=== PATIENT | female | born 1945 | race Hispanic/Latino ===

== ENCOUNTER → 2017-09-10 | Outpatient (CLI) | payer MEDICARE ==
[~2017-09-10] MED LIST: ASPI-555 PO; BENZ-51 PO; BUDE0.5A3 IH; DILT240C50 PO; DOXY100C40 PO; DULO30CA51 PO; FERR325T29 PO; FISH1CAP63 PO; FOLI1TAB15 PO; FURO40TA5 PO; INSLAN SQ; INSU100V SQ; LEVO75TA10 PO; LINA5TAB PO; LORA0.5T2 PO; MECL12.585 PO; METO-408 PO; PRAV40TA3 PO; PRED20TA3 PO; VALS80TA2 PO; ZOLP5TAB8 PO; [UNRECOGNIZED DRUG - CODE] PO
== END | disposition home or self-care (01) ==
LOC: RAH 10:00
PROVIDERS: ATTEND Internal Medicine Nephrology
DX: Z12.31 Encounter for screening mammogram for malignant neoplasm of breast (principal)
CPT/HCPCS: 77067

== ENCOUNTER 2018-09-07 11:14 | Emergency (ER) | payer MEDICARE ==
[~2018-09-07 11:14] MED LIST changes: -DOXY100C40 PO; -PRED20TA3 PO; -[UNRECOGNIZED DRUG - CODE] PO
[2018-09-07 11:50] LABS: BASOPHILS % (AUTO) 0.3 % (0.0-5.0); MEAN CORPUSCULAR HEMOGLOBIN 30.7 pg (27.0-33.0); MEAN CORPUSCULAR HGB CONC 31.7 g/dL (32.0-36.0); MEAN CORPUSCULAR VOLUME 97.1 fL (79-99); MONOCYTES % (AUTO) 6.3 % (3.0-13.0); NEUTROPHILS % (AUTO) 79.4 % (40.0-77.0); NUCLEATED RED BLOOD CELLS 0.3 % (0.0-0.19); PLATELET COUNT (AUTO) 163 K/uL (130-400); RED CELL DISTRIBUTION WIDTH 15.8 % (11.0-15.5); WHITE BLOOD COUNT (AUTO) 9.1 K/uL (4.8-10.8)
[2018-09-07 11:56] LABS: HEMATOCRIT 19.4 % (36-48)
[2018-09-07 12:01] LABS: CREATININE 1.6 mg/dL (0.5-1.5)
[2018-09-07 12:05] LABS: POTASSIUM 6.3 mmol/L (3.5-5.1)
[2018-09-07 12:16] LABS: INR 1.02 (0.85-1.15); PARTIAL THROMBOPLASTIN TIME 22.9 SEC (26.3-35.5); PROTHROMBIN TIME 10.7 SEC (9.6-11.6)
== END 2018-09-07 15:19 ==
LOC: EDH 11:14
DX: R04.0 Epistaxis (principal); E11.9 Type 2 diabetes mellitus without complications; N18.9 Chronic kidney disease, unspecified; I48.91 Unspecified atrial fibrillation; E78.5 Hyperlipidemia, unspecified; I25.10 Atherosclerotic heart disease of native coronary artery without angina pectoris; E07.9 Disorder of thyroid, unspecified; Z88.0 Allergy status to penicillin
CPT/HCPCS: 36415; 80048; 84484; 85025; 85610; 85730; 86850; 86900; 86901; 86922; 93005

== ENCOUNTER 2018-09-23 08:50 | Inpatient (IN) | payer MEDICARE ==
[2018-09-23 10:09] LABS: ABG BASE EXCESS 13.7 mmol/L (-2.0-3.0); ABG HCO3 42.1 mmol/L (21.0-28.0); ABG OXYGEN SATURATION 96.9 % (95.0-99.0); ABG PCO2 69 mmHg (32-45)
[2018-09-23 10:18] LABS: CREATININE 1.2 mg/dL (0.5-1.5); POTASSIUM 4.1 mmol/L (3.5-5.1)
[2018-09-23 10:21] LABS: BASOPHILS % (AUTO) 0.1 % (0.0-5.0); EOSINOPHILS % (AUTO) 0.2 % (0.0-8.0); HEMATOCRIT 31.8 % (36-48); MEAN CORPUSCULAR HEMOGLOBIN 29.3 pg (27.0-33.0); MEAN CORPUSCULAR VOLUME 91.3 fL (79-99); MONOCYTES % (AUTO) 7.8 % (3.0-13.0); NEUTROPHILS % (AUTO) 78.9 % (40.0-77.0); NUCLEATED RED BLOOD CELLS 0.1 % (0.0-0.19); PLATELET COUNT (AUTO) 175 K/uL (130-400); RED BLOOD CELL COUNT(AUTO) 3.48 MIL/uL (4.00-5.50); RED CELL DISTRIBUTION WIDTH 16.8 % (11.0-15.5); WHITE BLOOD COUNT (AUTO) 7.8 K/uL (4.8-10.8)
[2018-09-23 10:28] LABS: ALBUMIN 2.6 g/dL (3.5-5.0); BILIRUBIN,TOTAL 0.3 mg/dL (0.2-1.0); TOTAL PROTEIN, SERUM 6.5 g/dL (6.0-8.3)
[2018-09-23 10:40] LABS: B-TYPE NATRIURETIC PEPTIDE 1900 pg/mL (0-100)
[2018-09-23] MEDS ORDERED: IPRATROPIUM/ALBUTEROL SULFATE 3 ML SOLUTION IH ONE (10:55)
[2018-09-23] MEDS ORDERED: FUROSEMIDE 10 MG/ML 4ML VIAL ONE (10:56)
[2018-09-23] MEDS ORDERED: METHYLPREDNISOLONE SOD SUCC 125MG/2ML VIAL ONE (10:57)
[2018-09-23] MEDS ORDERED: ZOLPIDEM TARTRATE 5 MG TAB PO PRN (15:00)
[2018-09-23] MEDS ORDERED: MECLIZINE HCL 12.5 MG TABLET PO PRN (17:15)
[2018-09-23] MEDS ORDERED: HEPARIN SODIUM 5000UNIT/ML 1ML VIAL SQ SCH (17:15)
[2018-09-23] MEDS: FERROUS SULFATE 325 MG TABLET.DR PO SCH (17:59)
[2018-09-23] MEDS: FUROSEMIDE 10 MG/ML 4ML VIAL IVP SCH (18:00)
[2018-09-23 19:18] VITALS: BP 143/71
[2018-09-23] MEDS: BUDESONIDE 0.5 MG/2 ML INH IH SCH (19:40)
[2018-09-23] MEDS: IPRATROPIUM 0.5 MG/2.5 ML INH IH SCH ×2 (19:40→23:30)
[2018-09-23] MEDS: HEPARIN SODIUM 5000UNIT/ML 1ML VIAL SQ SCH (22:00)
[2018-09-23] MEDS: INSULIN HUMULIN R 100 UNIT/ML 3ML SQ SCH (22:02)
[2018-09-23] MEDS: INSULIN GLARGINE 100 UNITS/ML 10 ML VIAL SQ SCH (22:02)
[2018-09-23] MEDS: METOPROLOL TARTRATE 25 MG TAB PO SCH (22:03)
[2018-09-23] MEDS: BENZONATATE 100 MG CAPSULE PO SCH (22:03)
[2018-09-23] MEDS: SIMVASTATIN 20 MG TABLET PO SCH (22:03)
[2018-09-23 23:42] VITALS: BP 146/61
[2018-09-24 04:11] VITALS: BP 122/60
[2018-09-24 04:43] LABS: ABG BASE EXCESS 13.2 mmol/L (-2.0-3.0); ABG HCO3 39.4 mmol/L (21.0-28.0); ABG OXYGEN SATURATION 97.1 % (95.0-99.0); ABG PCO2 55 mmHg (32-45)
[2018-09-24] MEDS: FUROSEMIDE 10 MG/ML 4ML VIAL IVP SCH ×2 (05:43→18:45)
[2018-09-24] MEDS: LEVOTHYROXINE 75 MCG TABLET PO SCH (05:44)
[2018-09-24] MEDS: INSULIN HUMULIN R 100 UNIT/ML 3ML SQ SCH ×4 (05:45→22:21)
[2018-09-24] MEDS: BUDESONIDE 0.5 MG/2 ML INH IH SCH ×2 (06:18→19:08)
[2018-09-24] MEDS: IPRATROPIUM 0.5 MG/2.5 ML INH IH SCH ×4 (06:18→23:21)
[2018-09-24 07:38] VITALS: BP 157/72
[2018-09-24] MEDS: LINAGLIPTIN 5 MG TABLET PO SCH (08:40)
[2018-09-24] MEDS: FISH OIL 1000 MG/CAP PO SCH (08:40)
[2018-09-24] MEDS: FERROUS SULFATE 325 MG TABLET.DR PO SCH ×2 (08:41→16:56)
[2018-09-24] MEDS: ASPIRIN 81 MG EC TAB PO SCH (08:41)
[2018-09-24] MEDS: DILTIAZEM HCL 120 MG CAP.SR.24H PO SCH (08:41)
[2018-09-24] MEDS: LORAZEPAM 0.5 MG TABLET PO SCH (08:41)
[2018-09-24] MEDS: DULOXETINE HCL 30 MG CAP PO SCH (08:41)
[2018-09-24] MEDS: FOLIC ACID 1 MG TABLET PO SCH (08:42)
[2018-09-24] MEDS: DOXYCYCLINE HYCLATE 100 MG TABLET PO SCH ×2 (08:42→21:03)
[2018-09-24] MEDS: LOSARTAN 100 MG TABLET PO SCH (08:42)
[2018-09-24] MEDS: BENZONATATE 100 MG CAPSULE PO SCH ×3 (08:42→21:03)
[2018-09-24] MEDS: METOPROLOL TARTRATE 25 MG TAB PO SCH ×2 (08:42→21:04)
[2018-09-24] MEDS ORDERED: FUROSEMIDE 40 MG TABLET PO SCH (09:00)
[2018-09-24] MEDS: HEPARIN SODIUM 5000UNIT/ML 1ML VIAL SQ SCH ×2 (10:09→20:57)
[2018-09-24 11:11] VITALS: BP 146/61
[2018-09-24 13:31] LABS: HEMATOCRIT 27.8 % (36-48); MEAN CORPUSCULAR HEMOGLOBIN 29.3 pg (27.0-33.0); MEAN CORPUSCULAR HGB CONC 31.7 g/dL (32.0-36.0); MEAN CORPUSCULAR VOLUME 92.4 fL (79-99); NUCLEATED RED BLOOD CELLS 0.1 % (0.0-0.19); PLATELET COUNT (AUTO) 206 K/uL (130-400); RED BLOOD CELL COUNT(AUTO) 3.01 MIL/uL (4.00-5.50); RED CELL DISTRIBUTION WIDTH 16.9 % (11.0-15.5); WHITE BLOOD COUNT (AUTO) 12.6 K/uL (4.8-10.8)
--- NOTE | 2018-09-24 13:37 | NUR ---
INITIAL: Met with pt this afternoon to discuss dcp. Pt mentions that she lives alone. Prior to admission was using a walker for ambulation and requires assistance w ADLs. Pt has provider services 39 1/2hr per week. Pt also has at home a nebulizer, cpap-, home O2 and a sh chair. Per pt she feels safe and comfortable to return home at ut. Will continue to follow and wait for MD recommendations. Addendum: 09/24/18 at 1343 by NOELLE HENDRICKS CM Amended: Links added.
[2018-09-24 14:03] LABS: CREATININE 1.6 mg/dL (0.5-1.5); MAGNESIUM 1.7 mg/dL (1.80-2.40); PHOSPHORUS 4.1 mg/dL (2.5-4.9); POTASSIUM 3.9 mmol/L (3.5-5.1); THYROID STIMULATING HORMONE 3.35 uIU/mL (0.36-3.74)
[2018-09-24] MEDS ORDERED: ACETAMINOPHEN 325 MG TAB PO PRN (15:00)
[2018-09-24 15:25] LABS: INR 0.92 (0.85-1.15); PROTHROMBIN TIME 9.7 SEC (9.6-11.6)
[2018-09-24 15:38] LABS: PARTIAL THROMBOPLASTIN TIME > 120.0 SEC (26.3-35.5)
[2018-09-24 15:46] VITALS: BP 118/50
[2018-09-24 19:00] VITALS: BP 124/70
[2018-09-24] MEDS: SIMVASTATIN 20 MG TABLET PO SCH (21:04)
[2018-09-24] MEDS: INSULIN GLARGINE 100 UNITS/ML 10 ML VIAL SQ SCH (22:21)
[2018-09-24 23:16] VITALS: BP 125/63
[2018-09-25 04:11] VITALS: BP 142/65
[2018-09-25 04:27] LABS: BASOPHILS % (AUTO) 0.5 % (0.0-5.0); EOSINOPHILS % (AUTO) 0.5 % (0.0-8.0); HEMATOCRIT 25.7 % (36-48); LYMPHOCYTES % (AUTO) 18.9 % (21.0-51.0); MEAN CORPUSCULAR HEMOGLOBIN 29.4 pg (27.0-33.0); MEAN CORPUSCULAR HGB CONC 31.8 g/dL (32.0-36.0); MEAN CORPUSCULAR VOLUME 92.4 fL (79-99); MONOCYTES % (AUTO) 5.9 % (3.0-13.0); NEUTROPHILS % (AUTO) 74.2 % (40.0-77.0); NUCLEATED RED BLOOD CELLS 0.1 % (0.0-0.19); PLATELET COUNT (AUTO) 158 K/uL (130-400); RED BLOOD CELL COUNT(AUTO) 2.78 MIL/uL (4.00-5.50); RED CELL DISTRIBUTION WIDTH 17.1 % (11.0-15.5); WHITE BLOOD COUNT (AUTO) 15.6 K/uL (4.8-10.8)
[2018-09-25 04:28] LABS: HEMOGLOBIN A1C 6.4 % (4.0-6.0)
[2018-09-25 04:30] LABS: INR 0.88 (0.85-1.15); PROTHROMBIN TIME 9.3 SEC (9.6-11.6)
[2018-09-25 04:37] LABS: PARTIAL THROMBOPLASTIN TIME > 120.0 SEC (26.3-35.5)
[2018-09-25 04:40] LABS: ALBUMIN 2.4 g/dL (3.5-5.0); BILIRUBIN,TOTAL 0.2 mg/dL (0.2-1.0); CREATININE 1.4 mg/dL (0.5-1.5); MAGNESIUM 1.9 mg/dL (1.80-2.40); PHOSPHORUS 4.7 mg/dL (2.5-4.9); POTASSIUM 4.2 mmol/L (3.5-5.1); THYROID STIMULATING HORMONE 6.68 uIU/mL (0.36-3.74); TOTAL PROTEIN, SERUM 5.8 g/dL (6.0-8.3)
[2018-09-25 04:55] LABS: B-TYPE NATRIURETIC PEPTIDE 544 pg/mL (0-100)
[2018-09-25] MEDS: FUROSEMIDE 10 MG/ML 4ML VIAL IVP SCH (06:10)
[2018-09-25] MEDS: LEVOTHYROXINE 75 MCG TABLET PO SCH (06:10)
[2018-09-25] MEDS: INSULIN HUMULIN R 100 UNIT/ML 3ML SQ SCH ×4 (06:11→21:00)
[2018-09-25] MEDS: IPRATROPIUM 0.5 MG/2.5 ML INH IH SCH ×4 (06:21→23:36)
[2018-09-25] MEDS: BUDESONIDE 0.5 MG/2 ML INH IH SCH ×2 (06:38→19:20)
[2018-09-25 07:21] VITALS: BP 145/70
[2018-09-25] MEDS: LINAGLIPTIN 5 MG TABLET PO SCH (08:57)
[2018-09-25] MEDS: LORAZEPAM 0.5 MG TABLET PO SCH (08:57)
[2018-09-25] MEDS: BENZONATATE 100 MG CAPSULE PO SCH ×3 (08:58→21:22)
[2018-09-25] MEDS: FERROUS SULFATE 325 MG TABLET.DR PO SCH ×2 (08:58→16:23)
[2018-09-25] MEDS: LOSARTAN 100 MG TABLET PO SCH (08:58)
[2018-09-25] MEDS: DILTIAZEM HCL 120 MG CAP.SR.24H PO SCH (08:58)
[2018-09-25] MEDS: DULOXETINE HCL 30 MG CAP PO SCH (08:58)
[2018-09-25] MEDS: FISH OIL 1000 MG/CAP PO SCH (08:59)
[2018-09-25] MEDS: DOXYCYCLINE HYCLATE 100 MG TABLET PO SCH ×2 (08:59→21:22)
[2018-09-25] MEDS: ASPIRIN 81 MG EC TAB PO SCH (08:59)
[2018-09-25] MEDS: FOLIC ACID 1 MG TABLET PO SCH (08:59)
[2018-09-25] MEDS: HEPARIN SODIUM 5000UNIT/ML 1ML VIAL SQ SCH ×2 (09:00→21:00)
[2018-09-25] MEDS: METOPROLOL TARTRATE 25 MG TAB PO SCH ×2 (09:00→21:22)
[2018-09-25] MEDS: FUROSEMIDE 40 MG TABLET PO SCH (09:51)
[2018-09-25 11:13] VITALS: BP 110/50
[2018-09-25 15:50] VITALS: BP 111/55
[2018-09-25 19:24] VITALS: BP 139/70
[2018-09-25] MEDS: SIMVASTATIN 20 MG TABLET PO SCH (21:22)
[2018-09-25] MEDS: INSULIN GLARGINE 100 UNITS/ML 10 ML VIAL SQ SCH (21:27)
[2018-09-26] VITALS (7 sets, daily range): BP systolic 99–158; BP diastolic 36–61
[2018-09-26 03:50] LABS: BASOPHILS % (AUTO) 0.4 % (0.0-5.0); EOSINOPHILS % (AUTO) 0.4 % (0.0-8.0); HEMATOCRIT 25.8 % (36-48); LYMPHOCYTES % (AUTO) 22.9 % (21.0-51.0); MEAN CORPUSCULAR HEMOGLOBIN 29.4 pg (27.0-33.0); MEAN CORPUSCULAR HGB CONC 32.1 g/dL (32.0-36.0); MEAN CORPUSCULAR VOLUME 91.4 fL (79-99); MONOCYTES % (AUTO) 8.3 % (3.0-13.0); NUCLEATED RED BLOOD CELLS 0.1 % (0.0-0.19); PLATELET COUNT (AUTO) 166 K/uL (130-400); RED BLOOD CELL COUNT(AUTO) 2.82 MIL/uL (4.00-5.50); RED CELL DISTRIBUTION WIDTH 17.2 % (11.0-15.5); WHITE BLOOD COUNT (AUTO) 9.3 K/uL (4.8-10.8)
[2018-09-26 04:08] LABS: ALBUMIN 2.3 g/dL (3.5-5.0); BILIRUBIN,TOTAL 0.3 mg/dL (0.2-1.0); CREATININE 1.4 mg/dL (0.5-1.5); MAGNESIUM 1.8 mg/dL (1.80-2.40); PHOSPHORUS 3.9 mg/dL (2.5-4.9); POTASSIUM 4.2 mmol/L (3.5-5.1); TOTAL PROTEIN, SERUM 5.7 g/dL (6.0-8.3)
[2018-09-26 04:18] LABS: B-TYPE NATRIURETIC PEPTIDE 569 pg/mL (0-100)
[2018-09-26] MEDS: LEVOTHYROXINE 75 MCG TABLET PO SCH (06:04)
[2018-09-26] MEDS: INSULIN HUMULIN R 100 UNIT/ML 3ML SQ SCH ×4 (06:06→22:05)
[2018-09-26] MEDS: IPRATROPIUM 0.5 MG/2.5 ML INH IH SCH ×4 (06:27→23:18)
[2018-09-26] MEDS: BUDESONIDE 0.5 MG/2 ML INH IH SCH ×2 (06:38→19:25)
[2018-09-26] MEDS: FERROUS SULFATE 325 MG TABLET.DR PO SCH ×2 (08:00→16:05)
[2018-09-26] MEDS: HEPARIN SODIUM 5000UNIT/ML 1ML VIAL SQ SCH ×2 (09:00→22:03)
[2018-09-26] MEDS: FISH OIL 1000 MG/CAP PO SCH (09:12)
[2018-09-26] MEDS: DULOXETINE HCL 30 MG CAP PO SCH (09:12)
[2018-09-26] MEDS: DOXYCYCLINE HYCLATE 100 MG TABLET PO SCH ×2 (09:12→21:50)
[2018-09-26] MEDS: ASPIRIN 81 MG EC TAB PO SCH (09:12)
[2018-09-26] MEDS: METOPROLOL TARTRATE 25 MG TAB PO SCH ×2 (09:12→21:51)
[2018-09-26] MEDS: LORAZEPAM 0.5 MG TABLET PO SCH (09:12)
[2018-09-26] MEDS: FOLIC ACID 1 MG TABLET PO SCH (09:12)
[2018-09-26] MEDS: LOSARTAN 100 MG TABLET PO SCH (09:12)
[2018-09-26] MEDS: FUROSEMIDE 40 MG TABLET PO SCH (09:12)
[2018-09-26] MEDS: LINAGLIPTIN 5 MG TABLET PO SCH (09:12)
[2018-09-26] MEDS: BENZONATATE 100 MG CAPSULE PO SCH ×3 (09:12→21:50)
[2018-09-26] MEDS: DILTIAZEM HCL 120 MG CAP.SR.24H PO SCH (09:13)
[2018-09-26] MEDS: SIMVASTATIN 20 MG TABLET PO SCH (21:50)
[2018-09-26] MEDS: INSULIN GLARGINE 100 UNITS/ML 10 ML VIAL SQ SCH (22:04)
[2018-09-27 03:40] LABS: BASOPHILS % (AUTO) 0.6 % (0.0-5.0); EOSINOPHILS % (AUTO) 0.7 % (0.0-8.0); HEMATOCRIT 25.4 % (36-48); LYMPHOCYTES % (AUTO) 18.8 % (21.0-51.0); MEAN CORPUSCULAR HEMOGLOBIN 28.6 pg (27.0-33.0); MEAN CORPUSCULAR HGB CONC 31.4 g/dL (32.0-36.0); MONOCYTES % (AUTO) 7.9 % (3.0-13.0); NUCLEATED RED BLOOD CELLS 0.1 % (0.0-0.19); PLATELET COUNT (AUTO) 169 K/uL (130-400); RED BLOOD CELL COUNT(AUTO) 2.79 MIL/uL (4.00-5.50); WHITE BLOOD COUNT (AUTO) 8.2 K/uL (4.8-10.8)
[2018-09-27 03:52] VITALS: BP 122/62
[2018-09-27 04:03] LABS: INR 0.94 (0.85-1.15); PARTIAL THROMBOPLASTIN TIME 23.7 SEC (26.3-35.5); PROTHROMBIN TIME 9.9 SEC (9.6-11.6)
[2018-09-27 04:09] LABS: ALBUMIN 2.3 g/dL (3.5-5.0); BILIRUBIN,TOTAL 0.3 mg/dL (0.2-1.0); CREATININE 1.5 mg/dL (0.5-1.5); POTASSIUM 4.2 mmol/L (3.5-5.1); TOTAL PROTEIN, SERUM 5.7 g/dL (6.0-8.3)
[2018-09-27] MEDS: INSULIN HUMULIN R 100 UNIT/ML 3ML SQ SCH ×4 (06:14→21:35)
[2018-09-27] MEDS: LEVOTHYROXINE 75 MCG TABLET PO SCH (06:16)
[2018-09-27 07:00] VITALS: BP 132/64
[2018-09-27] MEDS: BUDESONIDE 0.5 MG/2 ML INH IH SCH ×2 (07:15→18:48)
[2018-09-27] MEDS: IPRATROPIUM 0.5 MG/2.5 ML INH IH SCH ×4 (07:15→23:37)
--- NOTE | 2018-09-27 08:00 | NUR ---
AM ASSESSMENT PT SITTING IN BED, WATCHING TV. A/O X 3. SOB ON EXERTION. NO DISTRESS NOTED. O2 NC @ 2L. DENIES CHEST PAIN OR DISCOMFORT. DENIES PALPITATIONS. TELE: SR 80s. DENIES N/V AND/OR DIARRHEA. BEDREST. INSTRUCTED TO CALL FOR ASSISTANCE. CALL SOPHIA W/IN REACH.
[2018-09-27] MEDS: HEPARIN SODIUM 5000UNIT/ML 1ML VIAL SQ SCH ×2 (08:09→21:17)
[2018-09-27] MEDS: DOXYCYCLINE HYCLATE 100 MG TABLET PO SCH ×2 (08:14→21:22)
[2018-09-27] MEDS: FERROUS SULFATE 325 MG TABLET.DR PO SCH ×2 (08:14→16:30)
[2018-09-27] MEDS: ASPIRIN 81 MG EC TAB PO SCH (08:14)
[2018-09-27] MEDS: FISH OIL 1000 MG/CAP PO SCH (08:14)
[2018-09-27] MEDS: LOSARTAN 100 MG TABLET PO SCH (08:14)
[2018-09-27] MEDS: LORAZEPAM 0.5 MG TABLET PO SCH (08:15)
[2018-09-27] MEDS: METOPROLOL TARTRATE 25 MG TAB PO SCH ×2 (08:15→21:21)
[2018-09-27] MEDS: DILTIAZEM HCL 120 MG CAP.SR.24H PO SCH (08:15)
[2018-09-27] MEDS: DULOXETINE HCL 30 MG CAP PO SCH (08:15)
[2018-09-27] MEDS: LINAGLIPTIN 5 MG TABLET PO SCH (08:15)
[2018-09-27] MEDS: FUROSEMIDE 40 MG TABLET PO SCH (08:16)
[2018-09-27] MEDS: FOLIC ACID 1 MG TABLET PO SCH (08:16)
[2018-09-27] MEDS: BENZONATATE 100 MG CAPSULE PO SCH ×3 (08:17→21:20)
[2018-09-27 11:00] VITALS: BP 121/44
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
[2018-09-27 16:01] VITALS: BP 138/61
[2018-09-27 20:07] VITALS: BP 134/57
[2018-09-27] MEDS: SIMVASTATIN 20 MG TABLET PO SCH (21:21)
[2018-09-27] MEDS: INSULIN GLARGINE 100 UNITS/ML 10 ML VIAL SQ SCH (21:34)
[2018-09-27 23:45] VITALS: BP 127/76
[2018-09-28 03:50] VITALS: BP 135/54
[2018-09-28 04:25] LABS: HEMATOCRIT 26.6 % (36-48); MEAN CORPUSCULAR HEMOGLOBIN 28.7 pg (27.0-33.0); MEAN CORPUSCULAR HGB CONC 31.4 g/dL (32.0-36.0); MEAN CORPUSCULAR VOLUME 91.5 fL (79-99); NUCLEATED RED BLOOD CELLS 0.1 % (0.0-0.19); PLATELET COUNT (AUTO) 165 K/uL (130-400); RED BLOOD CELL COUNT(AUTO) 2.91 MIL/uL (4.00-5.50); RED CELL DISTRIBUTION WIDTH 16.8 % (11.0-15.5); WHITE BLOOD COUNT (AUTO) 7.5 K/uL (4.8-10.8)
[2018-09-28 04:51] LABS: CREATININE 1.1 mg/dL (0.5-1.5); POTASSIUM 4.3 mmol/L (3.5-5.1)
[2018-09-28] MEDS: IPRATROPIUM 0.5 MG/2.5 ML INH IH SCH ×3 (06:25→18:54)
[2018-09-28] MEDS: BUDESONIDE 0.5 MG/2 ML INH IH SCH ×2 (06:39→18:54)
[2018-09-28] MEDS: INSULIN HUMULIN R 100 UNIT/ML 3ML SQ SCH ×4 (06:41→21:38)
[2018-09-28] MEDS: ASPIRIN 81 MG EC TAB PO SCH (07:54)
[2018-09-28] MEDS: FISH OIL 1000 MG/CAP PO SCH (07:55)
[2018-09-28] MEDS: DILTIAZEM HCL 120 MG CAP.SR.24H PO SCH (07:55)
[2018-09-28] MEDS: LORAZEPAM 0.5 MG TABLET PO SCH (07:55)
[2018-09-28] MEDS: LINAGLIPTIN 5 MG TABLET PO SCH (07:55)
[2018-09-28] MEDS: FUROSEMIDE 40 MG TABLET PO SCH (07:55)
[2018-09-28] MEDS: METOPROLOL TARTRATE 25 MG TAB PO SCH ×2 (07:55→21:34)
[2018-09-28] MEDS: LOSARTAN 100 MG TABLET PO SCH (07:56)
[2018-09-28] MEDS: LEVOTHYROXINE 75 MCG TABLET PO SCH (07:56)
[2018-09-28] MEDS: DOXYCYCLINE HYCLATE 100 MG TABLET PO SCH ×2 (07:56→21:34)
[2018-09-28] MEDS: FERROUS SULFATE 325 MG TABLET.DR PO SCH ×2 (07:56→16:54)
[2018-09-28] MEDS: FOLIC ACID 1 MG TABLET PO SCH (07:56)
[2018-09-28] MEDS: HEPARIN SODIUM 5000UNIT/ML 1ML VIAL SQ SCH ×2 (07:57→21:35)
[2018-09-28] MEDS: BENZONATATE 100 MG CAPSULE PO SCH ×3 (07:59→21:34)
[2018-09-28] MEDS: DULOXETINE HCL 30 MG CAP PO SCH (07:59)
[2018-09-28 08:00] VITALS: BP 133/60
[2018-09-28 12:00] VITALS: BP 131/66
--- NOTE | 2018-09-28 15:54 | NUR ---
DC PLAN PATIENT ACCEPTED TO [facility]. MOT SIGNED AND IN CHART. EMS SET UP. PATIENT NOT SAFE TO TRAVEL VIA PRIVATE VEHICLE. POOR TRUNK CONTROL, 02 2L NC, MORBID OBESITY. NURSE NOTIFIED. Addendum: 09/28/18 at 1555 by AMRITA JUNIOR RN CM Amended: Links added.
[2018-09-28 16:00] VITALS: BP 148/62
--- NOTE | 2018-09-28 17:20 | NUR ---
[facility] rehab called for report. no answer.
--- NOTE | 2018-09-28 17:35 | NUR ---
[facility] called for report. Spoke to Lucita and she asked me to call her back in 15 minutes and gave me her direct number.
--- NOTE | 2018-09-28 17:50 | NUR ---
[facility] rehab called for report. No answer.
--- NOTE | 2018-09-28 18:15 | NUR ---
[facility] rehab called for report. No answer.
--- NOTE | 2018-09-28 18:25 | NUR ---
[facility] rehab called for report. Report finally given to Lucita. Ems has been called as well. They were unable to give me a ETA.
[2018-09-28 20:45] VITALS: BP 145/54
[2018-09-28] MEDS: SIMVASTATIN 20 MG TABLET PO SCH (21:34)
[2018-09-28] MEDS: INSULIN GLARGINE 100 UNITS/ML 10 ML VIAL SQ SCH (21:37)
--- NOTE | 2018-09-28 23:10 | NUR ---
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 Patients belongings taken , paperwork given and telepack removed. Patient transported on 2LPM nasal cannula.
== END 2018-09-28 23:10 | DRG 291 ==
LOC: EDH 08:50 → EDHIP 13:45 → OBSVTOIN 13:45 → 2AH 17:12
PROVIDERS: ADMIT Internal Medicine Critical Care Medicine; ATTEND Internal Medicine Critical Care Medicine
PROC: 5A09357 Assistance with Respiratory Ventilation, Less than 24 Consecutive Hours, Continuous Positive Airway Pressure (ICD-10-PCS; principal; 2018-09-23)
PROC: 5A09357 Assistance with Respiratory Ventilation, Less than 24 Consecutive Hours, Continuous Positive Airway Pressure (ICD-10-PCS; 2018-09-24)
PROC: 5A09357 Assistance with Respiratory Ventilation, Less than 24 Consecutive Hours, Continuous Positive Airway Pressure (ICD-10-PCS; 2018-09-26)
PROC: 5A09357 Assistance with Respiratory Ventilation, Less than 24 Consecutive Hours, Continuous Positive Airway Pressure (ICD-10-PCS; 2018-09-27)
PROC: 5A09357 Assistance with Respiratory Ventilation, Less than 24 Consecutive Hours, Continuous Positive Airway Pressure (ICD-10-PCS; 2018-09-28)
DX: I13.0 Hypertensive heart and chronic kidney disease with heart failure and stage 1 through stage 4 chronic kidney disease, or unspecified chronic kidney disease (principal); J96.22 Acute and chronic respiratory failure with hypercapnia; I50.33 Acute on chronic diastolic (congestive) heart failure; J96.21 Acute and chronic respiratory failure with hypoxia; E46 Unspecified protein-calorie malnutrition; J44.1 Chronic obstructive pulmonary disease with (acute) exacerbation; J84.10 Pulmonary fibrosis, unspecified; I35.0 Nonrheumatic aortic (valve) stenosis; N18.3 Chronic kidney disease, stage 3 (moderate); E11.22 Type 2 diabetes mellitus with diabetic chronic kidney disease; I25.10 Atherosclerotic heart disease of native coronary artery without angina pectoris; M10.9 Gout, unspecified; E03.9 Hypothyroidism, unspecified; E66.01 Morbid (severe) obesity due to excess calories; E78.5 Hyperlipidemia, unspecified; G47.33 Obstructive sleep apnea (adult) (pediatric); I48.0 Paroxysmal atrial fibrillation; K21.9 Gastro-esophageal reflux disease without esophagitis; Z95.2 Presence of prosthetic heart valve; Z79.4 Long term (current) use of insulin; Z79.82 Long term (current) use of aspirin; Z79.899 Other long term (current) drug therapy; Z99.81 Dependence on supplemental oxygen; Z88.0 Allergy status to penicillin
CPT/HCPCS: 36415; 36600; 71045; 80048; 80053; 80061; 82803; 82948; 83036; 83605; 83735; 83880; 84100; 84443; 84480; 84484; 85025; 85027; 85610; 85730; 87804; 93005; 94640; 94660; 94664; 97039; G0378; J1644; J1815; J1940; J2930

== ENCOUNTER 2018-10-16 00:48 | Inpatient (IN) | payer MEDICARE | END 2018-10-22 19:46 | LOC: EDH 00:48 → EDHIP 04:01 → 2AH 10-17 16:11 → 2BH 05:47 | DX: I21.4 Non-ST elevation (NSTEMI) myocardial infarction (principal); J96.21 Acute and chronic respiratory failure with hypoxia; J96.22 Acute and chronic respiratory failure with hypercapnia; I50.31 Acute diastolic (congestive) heart failure; N17.9 Acute kidney failure, unspecified; E66.2 Morbid (severe) obesity with alveolar hypoventilation; J44.1 Chronic obstructive pulmonary disease with (acute) exacerbation; N18.3 Chronic kidney disease, stage 3 (moderate); J84.10 Pulmonary fibrosis, unspecified ==